=== PATIENT | female | born 1990 | race Caucasian/White ===

== ENCOUNTER 2019-08-15 07:17 | Emergency (ER) | payer OTHER ==
[~2019-08-15] VITALS: Ht 167 cm; Wt 73.7 kg
[2019-08-15] MEDS ORDERED: BUPR200T (07:39)
[2019-08-15] MEDS ORDERED: KETOROLAC 30 MG/ML VIAL IVP STA (07:43)
[2019-08-15 07:49] LABS: BILIRUBIN,URINE NEGATIVE (NEGATIVE); CLARITY,URINE CLEAR; COLOR,URINE YELLOW; GLUCOSE, URINE (UA) NEGATIVE (NEGATIVE); KETONES,URINE NEGATIVE (NEGATIVE); LEUKOCYTE ESTERASE ,URINE NEGATIVE (NEGATIVE); NITRITE,URINE NEGATIVE (NEGATIVE); PH,URINE 6 (5-9); PROTEIN,URINE 1+ (NEGATIVE); UROBILINOGEN,URINE NORMAL (NORMAL)
[2019-08-15 08:09] LABS: BACTERIA,URINE TRACE /HPF
--- NOTE | 2019-08-15 08:11 | ED Abdominal Pain ---
General Chief Complaint: Abdominal/GI Problems Stated Complaint: LOWER ABD PAIN Nursing Triage Note: pt presents to ed with complaints of lower pelvic/abdominal pain starting Sunday. Sepsis Screen: No Definite Risk Source of Information: Patient Exam Limitations: No Limitations History of Present Illness Date Seen by Provider: Aug 15, 2019 Time Seen by Provider: 07:32 Initial Comments Here with report of lower abdominal pain that started 3 days ago and has been intermittent since but worse today. Feels like it's both right and left-sided a nd goes to her back down to her tailbone. Denies bowel or bladder problems. She is sexually active with one partner with last sexual activity last night. Denied pain during sexual activity but did start having pain afterwards. Denies vaginal discharge or bleeding. She does have Mirena and has had that for about a year and a half. She does not have normal menstrual periods. Timing/Duration: 2-3 Days, Getting Worse, Intermittent Severity/Quality: Moderate, Aching Location: Suprapubic Radiation: RLQ, LLQ Activities at Onset: None Modifying Factors: Improves With Resting Associated Symptoms: Back Pain; No Chest Pain, No Fever/Chills, No Nausea/Vomiting, No Weakness Allergies and Home Medications Allergies Coded Allergies: No Known Drug Allergies (Unverified , 08/15/19) Patient Home Medication List Home Medication List Reviewed: Yes Review of Systems Review of Systems Constitutional: see HPI EENTM: No Symptoms Reported Respiratory: Denies Cough, Denies Shortness of Air Cardiovascular: Denies Chest Pain, Denies Palpitations Gastrointestinal: See HPI, Abdominal Pain; Denies Diarrhea, Denies Vomiting Genitourinary: Denies Burning, Denies Discharge, Denies Pain Musculoskeletal: see HPI, back pain; No muscle pain Skin: no symptoms reported Psychiatric/Neurological: No Symptoms Reported All Other Systems Reviewed Negative Unless Noted: Yes Past Pfwturi-Ydvcpr-Ndsrny Hx Past Med/Social Hx: Reviewed Nursing Past Med/Soc Hx Patient Social History Alcohol Use: Denies Use Recreational Drug Use: No Smoking Status: Never a Smoker Recent Foreign Travel: No Contact w/Someone Who Travel: No Recent Infectious Disease Expo: No Recent Hopitalizations: No Physical Abuse: No Sexual Abuse: No Fear: No Seasonal Allergies Seasonal Allergies: No Past Medical History Surgeries: No Respiratory: No Cardiac: No Neurological: No Genitourinary: No Gastrointestinal: No Musculoskeletal: No Endocrine: No HEENT: No Cancer: No Psychosocial: Yes Depression Integumentary: No Blood Disorders: No Family Medical History Reviewed Nursing Family Hx Physical Exam Vital Signs Vital Signs - First Documented 08/15/19 07:32 Temp 37.1 Pulse 101 Resp 18 B/P (MAP) 131/88 (102) Pulse Ox 100 Capillary Refill : Less Than 3 Seconds Height/Weight/BMI Height: '" Weight: lbs. oz. kg; 26.00 BMI Method: General Appearance: WD/WN, no apparent distress HEENT: PERRL/EOMI, pharynx normal Neck: full range of motion, supple Respiratory: lungs clear, normal breath sounds Cardiovascular: no murmur, tachycardia Gastrointestinal: soft; No guarding, No rebound; tenderness (bilateral lower quadrants with right greater than left) Extremities: non-tender, normal inspection Back: normal inspection, no CVA tenderness, no vertebral tenderness Neurologic/Psychiatric: alert, oriented x 3 Skin: normal color, warm/dry Progress/Results/Core Measures Results/Orders Lab Results Laboratory Tests Test 08/15/19 07:41 08/15/19 08:39 Range/Units Urine Color YELLOW Urine Clarity CLEAR Urine pH 6 5-9 Urine Specific [place] 1.020 1.016-1.022 Urine Protein 1+ H NEGATIVE Urine Glucose (UA) NEGATIVE NEGATIVE Urine Ketones NEGATIVE NEGATIVE Urine Nitrite NEGATIVE NEGATIVE Urine Bilirubin NEGATIVE NEGATIVE Urine Urobilinogen NORMAL NORMAL MG/DL Urine Leukocyte Esterase NEGATIVE NEGATIVE Urine RBC (Auto) NEGATIVE NEGATIVE Urine RBC NONE /HPF Urine WBC NONE /HPF Urine Squamous Epithelial Cells 2-5 /HPF Urine Crystals NONE /LPF Urine Bacteria TRACE /HPF Urine Casts NONE /LPF Urine Mucus NEGATIVE /LPF Urine Culture Indicated NO White Blood Count 8.8 4.3-11.0 10^3/uL Red Blood Count 4.05 L 4.35-5.85 10^6/uL Hemoglobin 13.0 11.5-16.0 G/DL Hematocrit 38 35-52 % Mean Corpuscular Volume 93 80-99 FL Mean Corpuscular Hemoglobin 32 25-34 PG Mean Corpuscular Hemoglobin Concent 35 32-36 G/DL Red Cell Distribution Width 11.6 10.0-14.5 % Platelet Count 222 130-400 10^3/uL Mean Platelet Volume 9.2 7.4-10.4 FL Neutrophils (%) (Auto) 71 42-75 % Lymphocytes (%) (Auto) 20 12-44 % Monocytes (%) (Auto) 8 0-12 % Eosinophils (%) (Auto) 1 0-10 % Basophils (%) (Auto) 0 0-10 % Neutrophils # (Auto) 6.3 1.8-7.8 X 10^3 Lymphocytes # (Auto) 1.8 1.0-4.0 X 10^3 Monocytes # (Auto) 0.7 0.0-1.0 X 10^3 Eosinophils # (Auto) 0.1 0.0-0.3 10^3/uL Basophils # (Auto) 0.0 0.0-0.1 10^3/uL Sodium Level 136 135-145 MMOL/L Potassium Level 4.0 3.6-5.0 MMOL/L Chloride Level 107 98-107 MMOL/L Carbon Dioxide Level 25 21-32 MMOL/L Anion Gap 4 L 5-14 MMOL/L Blood Urea Nitrogen 13 7-18 MG/DL Creatinine 1.04 0.60-1.30 MG/DL Estimat Glomerular Filtration Rate > 60 BUN/Creatinine Ratio 13 Glucose Level 90 70-105 MG/DL Calcium Level 8.9 8.5-10.1 MG/DL Corrected Calcium 9.0 8.5-10.1 MG/DL Total Bilirubin 0.4 0.1-1.0 MG/DL Aspartate Amino Transf (AST/SGOT) 15 5-34 U/L Alanine Aminotransferase (ALT/SGPT) 12 0-55 U/L Alkaline Phosphatase 85 40-136 U/L C-Reactive Protein High Sensitivity 0.56 H 0.00-0.50 MG/DL Total Protein 6.3 L 6.4-8.2 GM/DL Albumin 3.9 3.2-4.5 GM/DL My Orders Orders - JACKIE GARCÍA MD Ed Iv/Invasive Line Start (08/15/19 07:39) Urine Dip-Bedside (08/15/19 07:39) Cbc With Automated Diff (08/15/19 07:39) Comprehensive Metabolic Panel (08/15/19 07:39) Hs C Reactive Protein (08/15/19 07:39) Ua Culture If Indicated (08/15/19 07:39) Ketorolac Injection (Toradol Injection) (08/15/19 07:43) Us Pelvic (Non Ob)22068 (08/15/19 09:27) Vital Signs/I&O 08/15/19 07:32 Temp 37.1 Pulse 101 Resp 18 B/P (MAP) 131/88 (102) Pulse Ox 100 Blood Pressure Mean: 102 Progress Progress Note : Progress Note Seen and evaluated. IV, labs and UA ordered. Toradol 30 mg IV. Monitor patient. Pain is somewhat improved. Labs reviewed. We will go ahead and get a pelvic ultrasound. 1044: Pelvic ultrasound complete and shows approximately 5 cm left ovarian cyst which I think accounts for the pain. I did discuss with her about following up with her [facility] [facility] doctor, who is in [place], regarding this especially in light of the fact that she has Mirena IUD. Discussed [id number] therapy. Discharged home with return precautions. Patient verbalize understanding of instructions and agreement with plan. Diagnostic Imaging Diagonstic Imaging: Ultrasound Plain Films/CT/US/NM/MRI: pelvis Comments Preliminary results show approximately 5 cm left ovarian cyst. Good blood flow. Mirena in place. Departure Impression Primary Impression: Left ovarian cyst Disposition: 01 HOME, SELF-CARE Condition: Stable Departure-Patient Inst. Decision time for Depature: 10:46 Referrals: NO,LOCAL PHYSICIAN (PCP/Family) Primary Care Physician Patient Instructions: Ovarian Cyst (DC), Acute Abdomen (Belly Pain), Adult (DC) Add. Discharge Instructions: All discharge instructions reviewed with patient and/or family. Voiced understanding. Take medications as prescribed. You may also take Tylenol/acetaminophen 1000 mg every 6-8 hours as needed for pain and is safe to take with the ibuprofen. Drink plenty of fluids. It is important that he follow up with your [facility] for further evaluation and for discussion related to the Mirena IUD device in light of ovarian cyst. Return for worse pain, fever, vomiting, weakness, significant abdominal pain, breathing problems or other concerns as needed. You should go by medical records today and sign out for the [employer] portal so that he can access your medical records and take those to your boarding house cook. Scripts Ibuprofen (Ibuprofen) 800 Mg Tablet 800 MG PO Q8H PRN for PAIN, #30 TAB 0 Refills Prov: JACKIE GARCÍA MD 08/15/19 JACKIE GARCÍA MD Aug 15, 2019 08:10
[2019-08-15 08:46] LABS: BASOPHILS % (AUTO) 0 % (0-10); EOSINOPHILS # (AUTO) 0.1 10^3/uL (0.0-0.3); EOSINOPHILS % (AUTO) 1 % (0-10); HEMATOCRIT 38 % (35-52); LYMPHOCYTES # (AUTO) 1.8 X 10^3 (1.0-4.0); LYMPHOCYTES % (AUTO) 20 % (12-44); MEAN CORPUSCULAR HEMOGLOBIN 32 PG (25-34); MEAN CORPUSCULAR HGB CONC 35 G/DL (32-36); MEAN CORPUSCULAR VOLUME 93 FL (80-99); MEAN PLATELET VOLUME 9.2 FL (7.4-10.4); MONOCYTES # (AUTO) 0.7 X 10^3 (0.0-1.0); MONOCYTES % (AUTO) 8 % (0-12); NEUTROPHILS # (AUTO) 6.3 X 10^3 (1.8-7.8); NEUTROPHILS % (AUTO) 71 % (42-75); PLATELET COUNT 222 10^3/uL (130-400); RED CELL DISTRIBUTION WIDTH 11.6 % (10.0-14.5); WHITE BLOOD COUNT 8.8 10^3/uL (4.3-11.0)
[2019-08-15 09:20] LABS: ALANINE AMINOTRANSFERASE 12 U/L (0-55); ALBUMIN 3.9 GM/DL (3.2-4.5); ALKALINE PHOSPHATASE 85 U/L (40-136); BILIRUBIN,TOTAL 0.4 MG/DL (0.1-1.0); BUN/CREATININE RATIO 13; CALCIUM 8.9 MG/DL (8.5-10.1); CARBON DIOXIDE 25 MMOL/L (21-32); CHLORIDE 107 MMOL/L (98-107); CREATININE SERUM 1.04 MG/DL (0.60-1.30); GFR ESTIMATED > 60; GLUCOSE 90 MG/DL (70-105); SODIUM 136 MMOL/L (135-145); TOTAL PROTEIN 6.3 GM/DL (6.4-8.2)
[2019-08-15] MEDS ORDERED: IBUP-1780 PO (10:56)
--- NOTE | 2019-08-15 11:00 | Diagnostic Imaging Report ---
PROCEDURE: US PELVIC (NON OB) TECHNIQUE: Multiple real-time grayscale images were obtained over the pelvis in various projections transabdominally. INDICATION: Pelvic pain. FINDINGS: The uterus measures 8.7 x 6.5 x 4.5 cm. Endometrium is 9 mm in thickness. There is an IUD which appears to be appropriately centered in the endometrial canal. No myometrial mass is seen. Right ovary measures 3.3 x 2.2 x 2.6 cm. Right ovary contains small follicles. There is blood flow. Left ovary measures 6.1 x 5.8 x 4.1 cm. There is a cyst involving the left ovary measuring 5.0 x 4.1 x 3.5 cm. No significant free fluid is seen apart from minimal fluid adjacent to the left ovary. IMPRESSION: 1. 5 cm left ovarian cyst with minimal free fluid in the left adnexa. 2. IUD appears to be appropriately centered in the endometrial canal. Dictated by: Dictated on workstation # [id number]
[2019-08-15 12:20] VITALS: BP 126/82
== END 2019-08-15 12:20 | disposition home or self-care (01) ==
LOC: ER 07:21
DX: N83.202 Unspecified ovarian cyst, left side (principal); F32.9 Major depressive disorder, single episode, unspecified
CPT/HCPCS: 36415; 76856; 80053; 81000; 84703; 85025; 86141